=== PATIENT | male | born 1945 | race Caucasian/White ===

== ENCOUNTER → 2021-05-19 | Outpatient (CLI) | payer MEDICARE, BC ==
[~2021-05-19] MED LIST: CALAN120 MG PO; DUO-KAPS1 CAP PO; METAMUCIL3.4 GM/DOS PO; MICARDIS80 MG PO; NORCO 325 MG-51 TAB PO; VITAMIN B12 781 TAB PO; VITAMIN D31000 IU PO
== END ==
LOC: COL.RAD 09:18
DX: C61 Malignant neoplasm of prostate (principal)
CPT/HCPCS: A9503

== ENCOUNTER 2021-06-24 13:02 | Inpatient (IN) | payer MEDICARE, BC ==
[~2021-06-24] VITALS: Ht 172.7 cm; Wt 82.8 kg
[2021-06-29] VITALS (12 sets, daily range): BP systolic 101–141; BP diastolic 60–84; PULSE 58–71; TEMP 97.7–98.4
[2021-06-29] MEDS ORDERED: CALAN120 MG PO (06:00)
[2021-06-29] MEDS ORDERED: MICARDIS80 MG PO (06:00)
[2021-06-29] MEDS ORDERED: VITAMIN D31000 IU PO (06:01)
[2021-06-29] MEDS ORDERED: VITAMIN B12 781 TAB PO (06:01)
[2021-06-29] MEDS ORDERED: DUO-KAPS1 CAP PO (06:02)
[2021-06-29 06:30] LABS: BASO % 0.7 % (0.0-2.0); EOS # 0.1 (0.0-0.7); GRAN # 2.7 (1.4-6.5); GRAN % 61.1 % (42.2-75.2); HEMOGLOBIN 15.8 g/dl (13.5-18.0); LYMPH # 0.9 (1.2-3.4); LYMPH % 20.7 % (20.0-51.0); MEAN CELL VOLUME 97 fl (80.0-100.0); MEAN CORPUSCULAR HEMOGLOBIN 32 pg (27.0-31.0); MEAN CORPUSCULAR HGB CONC 33 g/dl (33.0-37.0); MEAN PLATELET VOLUME 9.5 fl (7.4-10.4); MONO # 0.6 (0.1-0.6); MONO % 14.3 % (1.7-9.3); PLATELET COUNT 198 K/mm3 (130-400); RED BLOOD COUNT 4.94 M/mm3 (4.20-5.60); REDCELL DISTRIBUTION WIDTH-CV 13.4 % (11.5-14.5)
[2021-06-29 06:41] LABS: BILIRUBIN,TOTAL 0.6 mg/dL (0.0-1.0); CALCIUM 8.8 mg/dL (8.4-10.2); CREATININE, serum 0.91 (0.66-1.25); POTASSIUM 4.1 mmol/L (3.4-5.0); TOTAL PROTEIN 7.5 gm/dL (6.4-8.2)
--- NOTE | 2021-06-29 11:34 | NUR ---
PT TO ROOM 331 PER BED WITH REPORT FROM JULIET DOBSON PACU @1120. PT IS A/O X3, LUNGS CTA, ABDOMINAL INCISION PRITESH WITH DERMABOND TO INCISION SITES. MOSES DRAIN TO LATERAL LEFT ABDOMEN WITH MINIMAL DRAINAGE NOTED. ESCOTO TO DD WITH PINK URINE IN BAG. IV TO PUMP PER ORDERS. JELLO AND ICE WATER PROVIDED.
--- NOTE | 2021-06-29 16:53 | NUR ---
PT UP IN RECLINER FOR MOST OF AFTERNOON. EATING AND DRINKING WITH NO N/V. CHEWING GUM PER PROTOCOLS. NO CARBONATION. ENCOURGED AMBULATION.
--- NOTE | 2021-06-29 19:53 | NUR ---
Resting in bed. Assesment complete and charted. SHARLENE site dressing changed due to complete saturation. X5 lap sites CDI. Denies pain at this time. Call light in reach.
[2021-06-30 03:36] VITALS: BP 116/73; PULSE 77; TEMP 98
--- NOTE | 2021-06-30 06:42 | NUR ---
Patient had uneventful night. Resting in bed this AM.
--- NOTE | 2021-06-30 06:53 | NUR ---
Report given OLYA Arshad
[2021-06-30 08:17] LABS: CALCIUM 8.5 mg/dL (8.4-10.2); CREATININE, serum 1.18 (0.66-1.25); POTASSIUM 4.3 mmol/L (3.4-5.0)
[2021-06-30 08:39] LABS: HEMOGLOBIN 13.2 g/dl (13.5-18.0)
[2021-06-30 08:40] VITALS: BP 123/67; PULSE 75; TEMP 97.7
[2021-06-30 08:49] VITALS: BP 139/77; PULSE 71; TEMP 97.6
--- NOTE | 2021-06-30 09:13 | NUR ---
PT UP INDENPENDENTLY TO RECLINER FOR BREAKFAST. PAIN WELL CONTROLLED WITH PO MEDS. PT EATING AND DRINKING WITHOUT N/V. PT DRAIN SITE OOZING, DRESSING CHANGE COMPLETED NEEDED THROUGHTOUT SHIFT.
--- NOTE | 2021-06-30 11:48 | NUR ---
REMOVED SHARLENE DRAIN. PATIENT TOLERATED WELL. DRESSING APPLIED.
--- NOTE | 2021-06-30 12:41 | NUR ---
Initial visit; Patient thanked Field Education Director for looking in on him and offering God's blessings and to keep him in her prayers.
[2021-06-30 12:55] VITALS: BP 136/78; PULSE 71; TEMP 97.6
--- NOTE | 2021-06-30 16:00 | NUR ---
cleaner touch up worker met with patient and spouse to discuss discharge planning. Patient plans to discharge this afternoon and states he is independent with his activities of daily living. Patient states his primary care provider is Dr Hernandez and that he does not have any concerns securing his prescriptions. Patient and spouse stated they have completed advance directives and worker encouraged them to bring to the hospital. Patient plans to discharge home with spouse this afternoon.
[2021-06-30 16:02] VITALS: BP 132/67; PULSE 82; TEMP 97.9
--- NOTE | 2021-06-30 16:33 | NUR ---
LEG BAG TEACHING COMPLETE. DISCHARGE INSTRUCTIONS REVIEWED WITH PT AND . PT WALKED OUT AFTER INSTRUCTIONS REVIEWED.
== END 2021-06-30 16:34 | disposition home or self-care (01) | DRG 708 ==
LOC: INPTSU 06-29 05:32 → SURG 06-29 05:32
PROVIDERS: ADMIT Urology
PROC: 0VT34ZZ Resection of Bilateral Seminal Vesicles, Percutaneous Endoscopic Approach (ICD-10-PCS; 2021-06-29)
PROC: 07BC4ZZ Excision of Pelvis Lymphatic, Percutaneous Endoscopic Approach (ICD-10-PCS; 2021-06-29)
PROC: 8E0W4CZ Robotic Assisted Procedure of Trunk Region, Percutaneous Endoscopic Approach (ICD-10-PCS; 2021-06-29)
PROC: 0VT04ZZ Resection of Prostate, Percutaneous Endoscopic Approach (ICD-10-PCS; principal; 2021-06-29 07:30)
DX: C61 Malignant neoplasm of prostate (principal); K46.9 Unspecified abdominal hernia without obstruction or gangrene; Z20.822 Contact with and (suspected) exposure to COVID-19
CPT/HCPCS: A4314; J0330; J0690; J1100; J1885; J2405; J2704; J3010; J7120

== ENCOUNTER 2021-08-23 13:25 | Emergency (ER) | payer MEDICARE, BC ==
[~2021-08-23] VITALS: Ht 172.7 cm; Wt 79.5 kg
[~2021-08-23 13:25] MED LIST changes: -METAMUCIL3.4 GM/DOS PO; -NORCO 325 MG-51 TAB PO
[2021-08-23 13:51] VITALS: TEMP 98.1
[2021-08-23 14:45] LABS: BASO % 0.3 % (0.0-2.0); EOS % 0.3 % (0-4.0); GRAN # 5.3 (1.4-6.5); GRAN % 78.2 % (42.2-75.2); HEMATOCRIT 45.2 % (42.0-52.0); HEMOGLOBIN 14.9 g/dl (13.5-18.0); LYMPH # 0.8 (1.2-3.4); MEAN CELL VOLUME 97 fl (80.0-100.0); MEAN CORPUSCULAR HEMOGLOBIN 32 pg (27.0-31.0); MEAN CORPUSCULAR HGB CONC 33 g/dl (33.0-37.0); MEAN PLATELET VOLUME 9.4 fl (7.4-10.4); MONO # 0.7 (0.1-0.6); MONO % 9.9 % (1.7-9.3); PLATELET COUNT 205 K/mm3 (130-400); RED BLOOD COUNT 4.64 M/mm3 (4.20-5.60); REDCELL DISTRIBUTION WIDTH-CV 12.9 % (11.5-14.5)
[2021-08-23 15:05] LABS: ALBUMIN 3.4 gm/dL (3.4-4.8); BILIRUBIN,TOTAL 0.4 mg/dL (0.2-1.2); C-REACTIVE PROTEIN 0.1 mg/dL (0.00-0.50); CREATININE, serum 0.99 mg/dL (0.72-1.25); POTASSIUM 3.9 mmol/L (3.5-4.5); TOTAL PROTEIN 6.7 gm/dL (6.2-8.1)
[2021-08-23 16:00] LABS: COLLECTION METHOD CLEAN CATCH
[2021-08-23 16:10] LABS: PH 6 (5-8); SQUAMOUS EPITHELIAL None Seen /hpf; URINE APPEARANCE Clear; URINE BACTERIA None Seen /hpf; URINE BILIRUBIN Negative (NEGATIVE); URINE BLOOD Negative (NEGATIVE); URINE COLOR Straw; URINE GLUCOSE Negative (NEGATIVE); URINE KETONE Negative (NEGATIVE); URINE LEUKOCYTE ESTERASE Negative (NEGATIVE); URINE NITRATE Negative (NEGATIVE); URINE PROTEIN(semi-quant) Negative (NEGATIVE); URINE RBC 0-2 /hpf; URINE UROBILINOGEN Negative (NEGATIVE)
[2021-08-23 17:11] VITALS: BP 143/93; PULSE 68
[2021-08-24] MEDS ORDERED: METAMUCIL3.4 GM/DOS PO (16:00)
[2021-08-24] MEDS ORDERED: NORCO 325 MG-51 TAB PO (17:41)
== END 2021-08-23 17:12 | disposition home or self-care (01) ==
LOC: COL.ER 13:25
PROVIDERS: Family Medicine
DX: K40.90 Unilateral inguinal hernia, without obstruction or gangrene, not specified as recurrent (principal)
CPT/HCPCS: J2270; J2405; Q9967

== ENCOUNTER 2021-08-24 15:11 | Day surgery (SDC) | payer MEDICARE, BC ==
[2021-08-24] VITALS (7 sets, daily range): BP systolic 121–142; BP diastolic 67–90; PULSE 80–86; TEMP 98.3–98.8
[~2021-08-24] VITALS: Ht 172.7 cm; Wt 78.6 kg
[2021-08-24] MEDS ORDERED: METAMUCIL3.4 GM/DOS PO (16:00)
[2021-08-24] MEDS ORDERED: NORCO 325 MG-51 TAB PO (17:41)
--- NOTE | 2021-08-24 20:00 | NUR ---
PATIENT ALERT AND ORIENTED 4. UP EATING DINNER. HAS VOIDED. PATIENT SET TO DISCHARGE. AT BEDSIDE. IV TO RIGHT FOREARM. DENIES PAIN OR FURTHER NEEDS. CALL LIGHT WITHIN REACH. HEAD TO TOE ASSESSMENT COMPLETE.
--- NOTE | 2021-08-24 20:41 | NUR ---
PATIENT DISCHARGED TO HOME. TAKEN DOWNSTAIRS VIA WHEELCHAIR. IV D/C'D. NORCO GIVEN PER ORDERS BEFORE DISCHARGE
== END 2021-08-24 20:43 | disposition home or self-care (01) ==
LOC: SDCO 15:11 → SURG 18:15 → SDCO 20:43
DX: K40.30 Unilateral inguinal hernia, with obstruction, without gangrene, not specified as recurrent (principal); K66.0 Peritoneal adhesions (postprocedural) (postinfection); I10 Essential (primary) hypertension; Z85.46 Personal history of malignant neoplasm of prostate; Z20.822 Contact with and (suspected) exposure to COVID-19; Z79.899 Other long term (current) drug therapy; Z90.79 Acquired absence of other genital organ(s); Z80.0 Family history of malignant neoplasm of digestive organs
CPT/HCPCS: OP; C1781; J2405; J7120